=== PATIENT | male | born 1970 | race Caucasian/White ===

== ENCOUNTER 2019-01-24 05:48 | Day surgery (SDC) | payer OTHER ==
[2019-01-22 14:48] VITALS: BMI 30.4
[2019-01-24] MEDS ORDERED: MIDAZOLAM HCL 2 MG/2 ML SINGLE DOSE VIAL ONE (07:08)
[2019-01-24] MEDS ORDERED: SUCCINYLCHOLINE CHLORIDE 200 MG/10 ML SYRINGE ONE (07:08)
[2019-01-24] MEDS ORDERED: PROPOFOL 20 ML ONE (07:08)
[2019-01-24] MEDS ORDERED: LIDOCAINE HCL 2% (20ML MULTI-DOSE VIAL) NR ONE (07:25)
[2019-01-24] MEDS ORDERED: ceFAZolin SODIUM 1 GM VIAL ONE (07:53)
[2019-01-24] MEDS ORDERED: BUPIVACAINE HCL/PF 2.5 MG/ML - 30 ML VIAL IJ ONE (08:45)
[2019-01-24] MEDS ORDERED: KETOROLAC TROMETHAMINE 30 MG/1 ML VIAL ONE (09:01)
[2019-01-24] MEDS ORDERED: BUPIVACAINE HCL/PF 0.25% (2.5MG/ML) 10 ML VIAL IJ ONE (09:12)
[2019-01-24 10:40] VITALS: PULSE 72; TEMP 98.2
[2019-01-24 11:21] VITALS: BP 126/82
--- NOTE | 2019-01-25 18:20 | OP ---
DATE OF OPERATION: 01/24/2019 PREOPERATIVE DIAGNOSIS: Left thumb laceration with possible distal nerve laceration. POSTOPERATIVE DIAGNOSIS: Left thumb laceration with ulnar digital nerve laceration and compression. OPERATION: Left thumb exploration with ulnar digital nerve repair of partial ulnar digital nerve laceration and internal neurolysis the digital nerve. SURGEON: Rocael Faulkner M.D. LEAD QUALITY TECHNICIAN: Aung Yuan ANESTHESIA: General anesthesia. COMPLICATIONS: None. ESTIMATED BLOOD LOSS: Minimal. INDICATION FOR PROCEDURE: The patient is a 48-year-old male with the above findings, indicated for operative treatment. Risks, benefits, and alternatives were discussed with the patient at length. Proper informed consent was obtained. DESCRIPTION OF PROCEDURE: After proper identification of the patient and correct operative site, patient was brought to the operating room and placed supine on the operating room table, all bony prominences well padded. General anesthesia was provided by the anesthesiologist adequate for the procedure. Esmarch bandage to exsanguinate the left upper extremity. Tourniquet inflated to 250 mmHg. Patient's laceration at the IP joint volarly and ulnarly was reopened and extended proximally and distally in a monique-Marie fashion. The ulnar digital nerve was identified proximally and distally and traced back to the site of injury. Dense scar tissue was found at the site of the injury and debrided. The nerve was freed. Continued dense scar tissue was noted, and internal neurolysis was performed, and the nerve had an improved appearance once the decompression was performed. The injury happened just proximal to the trifurcation. Nerve fascicles were identified, and one nerve fascicle was about to be cut and was repaired using an 8-0 nylon suture using operative microscopic visualization and repair. The remainder of the nerve had been compressed but was now lacerated. The wound was irrigated and repaired with 5-0 plain gut suture. Sterile dressings were applied. Mikey Escamilla, the engineer assistant, was integral throughout the procedure. Procedure could not have been performed without a skilled operative engineer assistant. ROCAEL FAULKNER M.D. FABIANA/[id number]
== END 2019-01-24 11:23 | disposition home or self-care (01) ==
LOC: FASU 05:48
PROVIDERS: ATTEND Orthopaedic Surgery Hand Surgery
PROC: 01N40ZZ Release Ulnar Nerve, Open Approach (ICD-10-PCS; 2019-01-24)
PROC: 01Q40ZZ Repair Ulnar Nerve, Open Approach (ICD-10-PCS; 2019-01-24)
PROC: 01Q40ZZ Repair Ulnar Nerve, Open Approach (ICD-10-PCS; principal; 2019-01-24 08:06)
DX: S64.32XA Injury of digital nerve of left thumb, initial encounter (principal); S61.012A Laceration without foreign body of left thumb without damage to nail, initial encounter; X58.XXXA Exposure to other specified factors, initial encounter; Y93.9 Activity, unspecified; Y92.9 Unspecified place or not applicable
CPT/HCPCS: 94760